=== PATIENT | male | born 1985 | race African-American/Black ===

== ENCOUNTER 2022-07-01 04:19 | Emergency (ER) | payer MEDICAID, MEDICARE ==
[~2022-07-01] VITALS: Ht 178 cm; Wt 77.2 kg
[2022-07-01] MEDS ORDERED: benzotropine (04:35)
[2022-07-01] MEDS ORDERED: haldol (04:35)
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
[2022-07-01] MEDS ORDERED: CYCL10TA25 PO (05:44)
[2022-07-01] MEDS ORDERED: NAPR500T8 PO (05:44)
[2022-07-01] MEDS ORDERED: RX-CYCLOBENZAPRINE 10 MG (FLEXERIL) TAB PPK#3 PO STA (05:48)
[2022-07-01] MEDS ORDERED: RX-NAPROXEN (NAPROSYN) 250 MG TAB PPK#4 PO STA (05:48)
[2022-07-01 05:52] VITALS: BP 142/100
--- NOTE | 2022-07-01 06:40 | Diagnostic Imaging Report ---
EXAMINATION: Lumbar spine radiographs, 3 views. COMPARISON: None. HISTORY: 36-year-old male, low back pain. FINDINGS: There are five lumbar-type vertebral bodies. The alignment of the lumbar spine is unremarkable. There is no identified compression deformity or fracture. The lumbar disc heights are well preserved. Unremarkable evaluation of the facet joints. The sacroiliac joints are unremarkable in appearance. IMPRESSION: Unremarkable radiographs of the lumbar spine. Dictated by: Dictated on workstation # [id number]
--- NOTE | 2022-07-01 06:42 | Diagnostic Imaging Report ---
EXAMINATION: Pelvis, single view. COMPARISON: CT pelvis October 31, 2018. HISTORY: 36-year-old male, pelvic pain. FINDINGS: The pubic symphysis and sacroiliac joints are normally aligned. The hips are not obviously dislocated. There are pelvic calcifications, likely reflecting phleboliths. The joint spaces of both hips are well preserved. There is no identified osteophyte formation or subchondral cystic change. There is no identified acute fracture. IMPRESSION: Grossly unremarkable radiograph of the pelvis. Dictated by: Dictated on workstation # [id number]
== END 2022-07-01 05:56 | disposition home or self-care (01) ==
LOC: ER 04:23
DX: M54.50 Low back pain, unspecified (principal); M53.3 Sacrococcygeal disorders, not elsewhere classified; F17.210 Nicotine dependence, cigarettes, uncomplicated; Z28.310 Unvaccinated for COVID-19; Y09 Assault by unspecified means
CPT/HCPCS: 72100; 72170